=== PATIENT | female | born 1940 | race Caucasian/White ===

== ENCOUNTER 2020-04-24 09:23 | Emergency (ER) | payer OTHER ==
[2020-04-24 09:30] VITALS: TEMP 97.7; BMI 29.7
--- NOTE | 2020-04-24 10:54 | PDOC ---
History of Present Illness - General Chief Complaint: Pain, Acute Stated Complaint: ABD PAIN Time Seen by Provider: 04/24/20 09:47 History Source: Patient Exam Limitations: No Limitations - History of Present Illness Initial Comments: 04/24/20 10:57 79F PMH CABG presenting with nausea and nbnb vomiting and generalized abdominal pain since 2am. Pt states pain started after eating a turkey sandwich. Symptoms have mostly resolved at this point. BM this AM. Prior hysterectomy. Denies f/c/cp/sob. NKDA. Denies etoh and smoking. Pt notably denies chronic medical problems. Past History - Medical History Allergies/Adverse Reactions: Allergies Allergy/AdvReac Type Severity Reaction Status Date / Time No Known Allergies Allergy Verified 04/24/20 09:27 COPD: No - Surgical History Cardiac Surgery: Yes (open heart surgery) - Reproductive History Is Patient Now?: No Therapeutic (s) & number: No - Psycho-Social/Smoking History Smoking History: Never smoked Information on smoking cessation initiated: No - Substance Abuse Hx (Audit-C & DAST Scrn) How often the patient has a drink containing alcohol: Never Score: In Men: 4 or > Positive; In Women: 3 or > Positive: 0 Screen Result (Pos requires Nsg. Audit-10AR): Negative Review of Systems - Review of Systems Comments:: 04/24/20 22:36 CONSTITUTIONAL: Denies F / C HEENT: Denies sore throat, rhinorrhea RESP: Denies SOB, cough CARD: Denies chest pain GI: +abd pain w/ n/v : Denies dysuria NEURO: Denies numbness, tingling, weakness MSK: Denies back pain SKIN: Denies rashes *Physical Exam - Vital Signs Last Vital Signs Temp Pulse Resp BP Pulse Ox 97.7 F 66 16 140/78 99 04/24/20 09:28 04/24/20 09:28 04/24/20 09:28 04/24/20 09:28 04/24/20 09:28 - Physical Exam 04/24/20 22:36 GEN: Well appearing, NAD, comfortable. AAOx3. HEENT: NC/AT, EOMI, PERRL. No facial asymmetry. Moist mucous membranes. Normal voice. Supple neck w/ FROM. CV: S1/S2, RRR, no m/r/g LUNG: CTAB, no wheezes, crackles, rales, rhonchi. GI: TTP of the RUQ and suprapubically; no CVAT. soft, mild distension, +BS wnl MSK: No obvious deformities of all extremities. SKIN: Warm, dry, no rashes appreciated. PSYCH: Normal mood and affect. NEURO: Moving all extremities well. ED Treatment Course - LABORATORY CBC & Chemistry Diagram: 04/24/20 11:00 04/24/20 11:00 Medical Decision Making - Medical Decision Making 04/24/20 22:37 04/24/20 10:57 79F c/o 1 day of acute onset abd pain w/ n/v. Tender on RUQ and suprapubically. Pt states symptoms are much less severe at time of interaction. likely gastroenteritis but will consider biliary pathology, colitis, UTI, renal stone? and ischemia - cbc, cmp, lipase, lactate - ua, uc - EKG, CXR - CT A/P 04/24/20 13:24 EKG 10:55 HR 70 intervals and axis wnl, poor baseline in some leads, NSR, no DANIEL/D, TWI V2-V4 04/24/20 22:29 labs were reviewed and decision was made to obtain a non-con CT A/P to assess for renal stones given 1+ blood in urine CT scan report was reviewed results were discussed with patient and daughter at bedside Given pt's lack of symptoms, relatively unremarkable labs, and nontoxic appearance, the decision was made to discharge the patient with PCP, cardiology, general surgery, and vascular surgery follow up. Importance of close follow up given CT findings was stressed. Questions and concerns were addressed. Discharge - Discharge Information Problems reviewed: Yes Clinical Impression/Diagnosis: Abdominal pain Condition: Stable Disposition: HOME - Admission No - Follow up/Referral Referrals: Gerald Acuna MD [Primary Care Provider] - Herminio Cope MD [Non Staff, Medical] - Alex Pacheco MD [Staff Physician] - - Patient Discharge Instructions Additional Instructions: We discussed the multiple findings on your CT scan. A copy of the report has been provided to you. Please follow up with your primary care doctor within the week regarding your symptoms. Please follow up with your transmitter chief as scheduled. Follow up with General Surgery regarding your gallbladder in the next 10 days. We are referring you to Dr. Pacheco and Dr. Lopez; you can call either office to schedule an appointment. Follow up with a Vascular Surgeon regarding your Aorta in the next 10 days. We are referring you to Dr. Cope, you can call the office to schedule an appointment. Provide the CT report and lab values to all your doctors. Return to the Emergency Department if you experience any new or worsening symptoms, including but not limited to: - fevers - severe pain - intractable vomiting - anything that concerns you Discutimos los mltiples hallazgos en rawls tomografa computarizada. Se le álvarez proporcionado nguyễn copia del informe.Ladonna un seguimiento con rawls mdico de atencin primaria dentro de la semana con respecto a raulito sntomas.Ladonna un seguimiento con rawls cardilogo segn lo programado.Ladonna un seguimiento con Ciruga General con respecto a rawls vescula biliar en los prximos 10 aguilar. Lo estamos refiriendo al Dr. Pacheco y al Dr. Lopez; puede llamar a cualquiera de las oficinas para programar nguyễn mercy.Ladonna un seguimiento con un cirujano vascular con respecto a rawls aorta en los prximos 10 aguilar. Lo estamos refiriendo al Dr. Cope, puede llamar a la oficina para programar nguyễn mercy.Proporcione el informe de TC y los valores de laboratorio a todos raulito mdicos.Regrese al Departamento de Emergencias si experimenta algn sntoma nuevo o que empeora, incluidos, entre otros:- fiebres- dolor moy- vmitos intratables- cualquier cosa que te preocupe - Post Discharge Activity
[2020-04-24 11:30] LABS: BASO % 0.2 % (0-2.0); EOS % 0.2 % (0-4.5); HEMATOCRIT 38.5 % (32.4-45.2); HEMOGLOBIN 13.2 GM/dL (10.7-15.3); LYMPH % 9.8 % (8-40); MCH 31.5 pg (25.7-33.7); MCHC 34.2 g/dl (32.0-36.0); MEAN CELL VOLUME 92.2 fl (80-96); MONO % 5.5 % (3.8-10.2); NEUT % 84.3 % (42.8-82.8); PLATELET COUNT 123 K/MM3 (134-434); RBC 4.18 M/mm3 (3.60-5.2); RDW 14.4 % (11.6-15.6)
--- NOTE | 2020-04-24 11:41 | PDOC ---
Documentation entered by Hue Kamara SCRIBE, acting as scribe for Monika Adamson MD. Monika Adamson MD: This documentation has been prepared by the scribe, Hue Grant SCRIBE, under my direction and personally reviewed by me in its entirety. I confirm that the documentation accurately reflects all work, treatment, procedures, and medical decision making performed by me. Attending Attestation - Resident Resident Name: AllanAlex - ED Attending Attestation I have performed the following: I have examined & evaluated the patient, The case was reviewed & discussed with the resident, I agree w/resident's findings & plan, Exceptions are as noted - HPI HPI: 04/24/20 11:38 The patient is a 79 year old female with a significant PMH of who presents to the emergency department with N/V and abdominal pain since 2am. She states her symptoms started after eating a turkey sandwich. Pain was 6-8/10 at the time, now closer to a 2-3/10. Allergies: NKA Past surgical history: Social history: No reported hx of tobacco use, alcohol use or illicit drug use. PCP: - Physicial Exam PE: GENERAL: Awake, alert, and fully oriented, in no acute distress HEAD: No signs of trauma EYES: PERRLA, EOMI, sclera anicteric, conjunctiva clear ENT: Auricles normal inspection, hearing grossly normal, nares patent, oropharynx clear without exudates. Moist mucosa NECK: Normal ROM, supple, no lymphadenopathy, JVD, or masses LUNGS: Breath sounds equal, clear to auscultation bilaterally. No wheezes, and no crackles HEART: Regular rate and rhythm, normal S1 and S2, no murmurs, rubs or gallops ABDOMEN: Soft, +L mid-abdomen and LLQ tenderness, normoactive bowel sounds. No guarding, no rebound. No masses EXTREMITIES: Normal range of motion, no edema. No clubbing or cyanosis. No cords, erythema, or tenderness NEUROLOGICAL: Cranial nerves II through XII grossly intact. Normal speech. Motor and sensation intact SKIN: Warm, dry, normal turgor, no rashes or lesions noted. - Medical Decision Making Pt with diffuse abd pain, found to have blood on UA. Will obtain CT spiral to r/o stone. Discharge - Discharge Information Problems reviewed: Yes Clinical Impression/Diagnosis: Abdominal pain Qualifiers: Abdominal location: generalized Qualified Code(s): R10.84 - Generalized abdominal pain Condition: Stable Disposition: HOME - Follow up/Referral Referrals: Alex Pacheco MD [Staff Physician] - Gerald Acuna MD [Primary Care Provider] - Herminio Cope MD [Non Staff, Medical] - - Patient Discharge Instructions Additional Instructions: We discussed the multiple findings on your CT scan. A copy of the report has been provided to you. Please follow up with your primary care doctor within the week regarding your symptoms. Please follow up with your adjunct psychology professor as scheduled. Follow up with General Surgery regarding your gallbladder in the next 10 days. We are referring you to Dr. Pacheco and Dr. Lopez; you can call either office to schedule an appointment. Follow up with a Vascular Surgeon regarding your Aorta in the next 10 days. We are referring you to Dr. Cope, you can call the office to schedule an appointment. Provide the CT report and lab values to all your doctors. Return to the Emergency Department if you experience any new or worsening symptoms, including but not limited to: - fevers - severe pain - intractable vomiting - anything that concerns you Discutimos los mltiples hallazgos en rawls tomografa computarizada. Se le álvarez proporcionado nguyễn copia del informe.Ladonna un seguimiento con rawls mdico de atencin primaria dentro de la semana con respecto a raulito sntomas.Ladonna un seguimiento con rawls cardilogo segn lo programado.Ladonna un seguimiento con Ciruga General con respecto a rawls vescula biliar en los prximos 10 aguilar. Lo estamos refiriendo al Dr. Pacheco y al Dr. Lopez; puede llamar a cualquiera de las oficinas para programar nguyễn mercy.Ladonna un seguimiento con un cirujano vascular con respecto a rawls aorta en los prximos 10 aguilar. Lo estamos refiriendo al Dr. Cope, puede llamar a la oficina para programar nguyễn mercy.Proporcione el informe de TC y los valores de laboratorio a todos raulito mdicos.Regrese al Departamento de Emergencias si experimenta algn sntoma nuevo o que empeora, incluidos, entre otros:- fiebres- dolor moy- vmitos intratables- cualquier cosa que te preocupe - Post Discharge Activity
[2020-04-24 11:55] LABS: ALBUMIN 3.8 g/dl (3.4-5.0); ANION GAP 8 MMOL/L (8-16); BILIRUBIN,TOTAL 1.1 mg/dL (0.2-1); BLOOD UREA NITROGEN 15.7 mg/dL (7-18); CALCIUM 8.9 mg/dL (8.5-10.1); CHLORIDE 106 mmol/L (98-107); CO2 25 mmol/L (21-32); CREATININE 0.7 mg/dL (0.55-1.3); LIPASE 369 U/L (73-393); SGOT/AST 59 U/L (15-37); SGPT/ALT 38 U/L (13-61); SODIUM 139 mmol/L (136-145); TOT PROT 7.9 g/dl (6.4-8.2)
[2020-04-24 12:02] LABS: ALK PHOS 74 U/L (45-117); GLUCOSE,RANDOM 111 mg/dL (74-106)
[2020-04-24 12:17] LABS: URINE APPEARANCE Clear; URINE BILIRUBIN Negative (NEGATIVE); URINE COLOR Yellow; URINE GLUCOSE (UA) Negative (NEGATIVE); URINE KETONE Negative (NEGATIVE); URINE LEUK ESTERASE Negative (NEGATIVE); URINE NITRITE Negative (NEGATIVE); URINE PROTEIN Negative (NEGATIVE); URINE UROBILINOGEN 0.2 mg/dL (0.2-1.0)
[2020-04-24 17:36] VITALS: BP 138/74; PULSE 74
--- NOTE | 2020-04-27 22:03 | EKG ---
Test Reason : Blood Pressure : / mmHG Vent. Rate : 070 BPM Atrial Rate : 070 BPM P-R Int : 146 ms QRS Dur : 080 ms QT Int : 418 ms P-R-T Axes : 086 031 058 degrees QTc Int : 451 ms NORMAL SINUS RHYTHM T WAVE ABNORMALITY, CONSIDER ANTERIOR ISCHEMIA ABNORMAL ECG NO PREVIOUS ECGS AVAILABLE Confirmed by ALONSO NEWTON MD ([id number]) on 04/27/2020 10:03:19 PM Referred By: Confirmed By:ALONSO NEWTON MD
== END 2020-04-24 17:36 | disposition home or self-care (01) ==
LOC: JER 09:23
DX: R10.84 Generalized abdominal pain (principal)
CPT/HCPCS: 36415; 71045-TC-FY; 74176-TC; 80053; 81003; 82550; 83605; 83690; 84484; 85025; 93005; 93010; 99285-25

== ENCOUNTER 2020-10-27 05:47 | Emergency (ER) | payer OTHER ==
[2020-10-27] MEDS ORDERED: ACETAMINOPHEN 1000 MG/100 ML VIAL (NON FORMULARY) IVPB ONE (06:01)
[2020-10-27] MEDS ORDERED: LACTATED RINGERS SOLUTION 1000 ML INFUS.BAG IV ONE (06:01)
[2020-10-27] MEDS ORDERED: ACETAMINOPHEN INJECTION 100 ML IVPB ONE (06:22)
[2020-10-27 06:25] VITALS: PULSE 69; BMI 29.9
[2020-10-27 06:48] LABS: BASO % 0.4 % (0-2.0); EOS % 0.2 % (0-4.5)
[2020-10-27 06:52] LABS: POTASSIUM 3.7 mmol/L (3.5-5.1)
[2020-10-27 06:53] LABS: CALCIUM 8.7 mg/dL (8.5-10.1)
[2020-10-27 06:54] LABS: ALBUMIN 3.9 g/dl (3.4-5.0); BLOOD UREA NITROGEN 15.3 mg/dL (7-18); INR 1.21 (0.83-1.09); PROTHROMBIN TIME (PATIENT) 14.8 SEC (9.7-13.0)
[2020-10-27 06:57] LABS: ACTIVATED PTT 29.4 SECONDS (25.2-36.5); CREATININE 0.6 mg/dL (0.55-1.3)
[2020-10-27 06:58] LABS: BILIRUBIN,TOTAL 1.2 mg/dL (0.2-1); TOT PROT 7.8 g/dl (6.4-8.2)
[2020-10-27 08:31] LABS: HEMATOCRIT 37.3 % (32.4-45.2); MCH 31.7 pg (25.7-33.7); MCHC 34.9 g/dl (32.0-36.0); MEAN CELL VOLUME 90.9 fl (80-96); MEAN PLT VOLUME 8.7 fl (7.5-11.1); MONO % 3.1 % (3.8-10.2); NEUT % 87.3 % (42.8-82.8); PLATELET COUNT 144 K/MM3 (134-434); RDW 14.1 % (11.6-15.6); WHITE BLOOD COUNT 7.9 K/mm3 (4.0-10.0)
[2020-10-27 09:52] LABS: URINE APPEARANCE CLEAR; URINE BILIRUBIN NEGATIVE (NEGATIVE); URINE COLOR YELLOW; URINE GLUCOSE (UA) NEGATIVE (NEGATIVE); URINE KETONE NEGATIVE (NEGATIVE); URINE LEUK ESTERASE NEGATIVE (NEGATIVE); URINE NITRITE NEGATIVE (NEGATIVE); URINE PROTEIN NEGATIVE (NEGATIVE)
[2020-10-27 10:15] LABS: EPI CELLS 6 /uL (0-25.1); HYALINE CASTS 1 /uL (0-3.1); URINE BACTERIA 45 /uL (0-1359); URINE RBC 45 /uL (0-23.9); URINE WBC 2 /uL (0-25.8)
[2020-10-27 12:52] VITALS: BP 145/65; TEMP 98
== END 2020-10-27 17:38 | disposition home or self-care (01) ==
LOC: JER 05:47
PROC: 3E033GC Introduction of Other Therapeutic Substance into Peripheral Vein, Percutaneous Approach (ICD-10-PCS; principal; 2020-10-27)
DX: R10.84 Generalized abdominal pain (principal)
CPT/HCPCS: 36415; 71045-TC-FY; 74177-TC; 76705-TC; 80053; 81003; 82550; 83605; 83690; 84484; 85025; 85610; 85730; 87086; 93005; 93010; 99285-25; C9803; J0131; Q9967; U0003

== ENCOUNTER 2023-12-22 13:06 | Emergency (ER) | payer OTHER ==
[2023-12-22 13:18] VITALS: RESP 18; BMI 28.3
[2023-12-22] MEDS ORDERED: ACETAMINOPHEN INJECTION 100 ML IVPB ONE (14:07)
[2023-12-22 14:11] LABS: BASO % 0.6 % (0-2.0); EOS % 2.7 % (0-4.5); HEMATOCRIT 34.9 % (32.4-45.2); HEMOGLOBIN 11.9 GM/dL (10.7-15.3); LYMPH % 27.5 % (8-40); MCHC 34.1 g/dl (32.0-36.0); MONO % 8.6 % (3.8-10.2); NEUT % 60.6 % (42.8-82.8); PLATELET COUNT 98 10^3/uL (134-434); RBC 3.84 M/mm3 (3.60-5.2); WHITE BLOOD COUNT 3.8 K/mm3 (4.0-10.0)
[2023-12-22 14:13] LABS: EPI CELLS 6 /uL (0-25.1); HYALINE CASTS 0 /uL (0-3.1); PH,URINE 6.5 (5.0-8.0); URINE APPEARANCE CLEAR; URINE BACTERIA 16 /uL (0-1359); URINE BILIRUBIN NEGATIVE (NEGATIVE); URINE COLOR YELLOW; URINE GLUCOSE (UA) NEGATIVE (NEGATIVE); URINE KETONE NEGATIVE (NEGATIVE); URINE LEUK ESTERASE NEGATIVE (NEGATIVE); URINE NITRITE NEGATIVE (NEGATIVE); URINE PROTEIN NEGATIVE (NEGATIVE); URINE RBC 80 /uL (0-23.9); URINE WBC 3 /uL (0-25.8)
[2023-12-22 14:40] LABS: POTASSIUM 3.9 mmol/L (3.5-5.1)
[2023-12-22] MEDS: ACETAMINOPHEN 1000 MG/100 ML BAG IVPB ONE (14:41)
[2023-12-22] MEDS: SODIUM CHLORIDE 0.9% 500 ML INFUS.BAG IV ONE (14:41)
[2023-12-22 14:42] LABS: ALBUMIN 3.4 g/dl (3.4-5.0); CALCIUM 8.5 mg/dL (8.5-10.1)
[2023-12-22 14:43] LABS: BLOOD UREA NITROGEN 14.8 mg/dL (7-18)
[2023-12-22 14:45] LABS: CREATININE 0.6 mg/dL (0.55-1.3)
[2023-12-22 14:47] LABS: BILIRUBIN,TOTAL 0.7 mg/dL (0.2-1)
[2023-12-22] MEDS ORDERED: CEFTRIAXONE 1 GM/50 ML BAG ONE (16:19)
[2023-12-22] MEDS: CEFTRIAXONE 1,000 MG in DEXTROSE 5%-WATER - 50 ML IVPB ONE (16:25)
[2023-12-22 19:10] VITALS: BP 151/83; PULSE 74; TEMP 97.7
== END 2023-12-22 20:31 | disposition home or self-care (01) ==
LOC: JER 13:06
PROC: 3E03329 Introduction of Other Anti-infective into Peripheral Vein, Percutaneous Approach (ICD-10-PCS; principal; 2023-12-22)
PROC: 3E033NZ Introduction of Analgesics, Hypnotics, Sedatives into Peripheral Vein, Percutaneous Approach (ICD-10-PCS; 2023-12-22)
DX: R10.84 Generalized abdominal pain (principal); R30.0 Dysuria; N39.0 Urinary tract infection, site not specified; K80.20 Calculus of gallbladder without cholecystitis without obstruction; R35.0 Frequency of micturition; R31.29 Other microscopic hematuria
CPT/HCPCS: 36415; 74177-TC; 76705-TC; 80053; 81003; 83690; 85025; 87086; 96365; 96375; 99285-25; J0131; Q9967